=== PATIENT | female | born 1965 | race Caucasian/White ===

== ENCOUNTER 2023-12-31 05:52 | Day surgery (SDC) | payer OTHER, SELFPAY ==
[2023-12-22 14:20] VITALS: BMI 20.2
--- NOTE | 2023-12-30 11:55 | P.PNAN_ITS ---
Anes - Initial Pre Proc Eval Procedure: Operation Date: 12/31/23 07:30 Proposed Procedures p Screening Colonoscopy - Olman Youngblood MD Date/Time: 12/30/23 11:55 Surgeon: Olman Youngblood MD Pre Op Diagnosis: Neoplasm Screening Patient Data Age: 58 Gender: F Height: 1.75 m Weight: 62 kg Allergies Allergy/AdvReac Type Severity Reaction Status Date / Time oxycodone AdvReac Mild Nausea and Verified 12/31/23 06:15 Vomiting Home Medications Medication Instructions Recorded Confirmed Type cetirizine 10 mg capsule (Zyrtec) 10 mg PO DAILY PRN Allergy Symptoms 12/21/19 12/31/23 History cholecalciferol (vitamin D3) 50 50 mcg PO DAILY 12/21/20 12/31/23 History mcg (2,000 unit) capsule lisinopril 10 0.5 tablet PO DAILY 12/21/20 12/31/23 History mg-hydrochlorothiazide 12.5 mg tablet Patient hx anesthesia problems: none Family hx anesthesia problems: none Results Review: All pre-operative results and documents have been reviewed as part of the pre-operative evaluation. [facility] Past Medical History Medical History Hypertension Vaginal delivery x 2 Surgical History Surgical History History of endometrial ablation History of tonsillectomy Family History Family History Other Family history of malignant neoplasm of breast Family history of malignant neoplasm of cervix Social History Social History (Updated 05/19/23 @ 15:03 by Suyapa Murray CMA) Smoking status: Never smoker Second hand tobacco smoke exposure: No Alcohol intake: current Drinks per week: 3 Substance use: never Substance use type: does not use Lack of Transportation: No Lack of Food: Never True Current Housing: I Have Housing Concerned About Future Housing: No Difficulty Paying Gas/Electric Bills: No Difficulty Paying for Meds: No Currently Unemployed: No Education: Master's Degree or Higher Difficulty w/ Childcare or Family Care: No Living arrangements: with family Spiritual care concerns: No Anes - Eval Final PreProcedure Day of Procedure 12/30/23 11:55 Patient weight: normal Heart: regular rate and rhythm Lungs: clear to auscultation and normal air movement Airway: Mallampati scale class II Neurological: alert and oriented Last oral intake: >/= 8 hours ASA classification: II Emergent: no Anesthetic plan: proceed Anesthesia type and monitoring: general GIVS and standard monitoring Results Review: All pre-operative results and documents have been reviewed as part of the pre- operative evaluation. Informed Consent: The patient's anesthetic plan and its attendant risks and benefits were discussed with the patient/family/POA. Questions were solicited and answers provided to the satisfaction of the patient/family/POA.
[2023-12-31] MEDS: LACTATED RINGERS 1,000 ML 150 ML IV CONT (06:34)
[2023-12-31 06:37] VITALS: BP 153/94; PULSE 74; RESP 16; TEMP 37; O2SAT 100; BMI 19.8
--- NOTE | 2023-12-31 07:03 | PM.HPGS ---
History of Present Illness History of Present Illness Consent: Risks, benefits, and alternatives have been discussed and questions answered. Patient agrees to proceed with procedure. Chief complaint: Neoplasm Screening Narrative: Marissa Pham is a 58 year old female colonoscopy. Patient's current weight appetite and bowel movements are normal. Patient denies abdominal pain. He she has had no bleeding. Family history is noncontributory. Review of Systems Review of Systems: All systems reviewed & are unremarkable except as noted in HPI and below PMFSH Past Medical History Medical History Hypertension Vaginal delivery x 2 Surgical History Surgical History History of endometrial ablation History of tonsillectomy Family History Family History Other Family history of malignant neoplasm of breast Family history of malignant neoplasm of cervix Social History Social History (Updated 05/19/23 @ 15:03 by Suyapa Murray [employer]CH[employer]) Smoking status: Never smoker Second hand tobacco smoke exposure: No Alcohol intake: current Drinks per week: 3 Substance use: never Substance use type: does not use Lack of Transportation: No Lack of Food: Never True Current Housing: I Have Housing Concerned About Future Housing: No Difficulty Paying Gas/Electric Bills: No Difficulty Paying for Meds: No Currently Unemployed: No Education: Master's Degree or Higher Difficulty w/ Childcare or Family Care: No Living arrangements: with family Spiritual care concerns: No Meds Home Medications and Allergies Home Medications Medication Instructions Recorded Confirmed Type cetirizine 10 mg capsule (Zyrtec) 10 mg PO DAILY PRN Allergy Symptoms 12/21/19 12/31/23 History cholecalciferol (vitamin D3) 50 50 mcg PO DAILY 12/21/20 12/31/23 History mcg (2,000 unit) capsule lisinopril 10 0.5 tablet PO DAILY 12/21/20 12/31/23 History mg-hydrochlorothiazide 12.5 mg tablet Allergies Allergy/AdvReac Type Severity Reaction Status Date / Time oxycodone AdvReac Mild Nausea and Verified 12/31/23 06:15 Vomiting Vital Signs Vital Signs - 24 hr 12/31/23 06:37 Temperature 98.6 F Pulse Rate 74 Respiratory Rate 16 Blood Pressure 153/94 H Pulse Oximetry 100 Oxygen Delivery Room Air Exam Narrative: Physical exam reveals patient to be alert. Signs stable. HEENT exam is unremarkable. Patient is anicteric. Lungs are clear to auscultation and heart is without murmur or extra sounds. Abdomen bowel sounds are present soft nontender with no organomegaly. Digital external rectal exam is normal. Assessment and Plan Assessment and plan (1) Screen for colon cancer: Code(s): Z12.11 - Encounter for screening for malignant neoplasm of colon Status: Acute Assessment and Plan: Patient presents today for colon cancer screening. His be at average risk for colon polyps. Further recommendations may be given after endoscopy.
[2023-12-31 07:41] VITALS: BP 123/81; PULSE 76; RESP 14; O2SAT 99
[2023-12-31 07:51] VITALS: BP 118/78; PULSE 64; RESP 16; O2SAT 100
[2023-12-31 08:01] VITALS: BP 120/76; PULSE 65; RESP 16; O2SAT 100
== END 2023-12-31 08:05 | disposition home or self-care (01) ==
PROVIDERS: PCP Family Medicine; Visit Provider Internal Medicine Gastroenterology
PROC: 0DJD8ZZ Inspection of Lower Intestinal Tract, Via Natural or Artificial Opening Endoscopic (ICD-10-PCS; CPT 45378; principal; 2023-12-31 07:30)
DX: Z12.11 Encounter for screening for malignant neoplasm of colon (principal); K64.8 Other hemorrhoids
CPT/HCPCS: 45378